=== PATIENT | male | born 1965 | race Caucasian/White ===

== ENCOUNTER 2018-09-23 23:13 | Emergency (ER) | payer SELFPAY ==
[~2018-09-23] VITALS: Ht 177.8 cm; Wt 79.8 kg
[2018-09-23 23:28] VITALS: BP 150/98
--- NOTE | 2018-09-24 00:19 | RAD ---
3 views right ankle HISTORY: Swelling and redness laterally tender to touch for 2 weeks, no injury AP lateral oblique views right ankle There is soft tissue swelling over the lateral malleolus. There is thickening of the periosteum of the lateral distal tibia and the posterior medial malleolus suggesting old injury. The tibiotalar relationship is normal. There is no lytic destructive changes. IMPRESSION: Soft tissue swelling over the lateral malleolus. No acute bony abnormality identified. Clinical correlation is suggested. Electronically signed by: Sumit Babb III, MD (09/24/2018 12:16 AM) [id number]
--- NOTE | 2018-09-24 00:32 | PHYS DOC ---
Past Medical History Past Medical History: No Pertinent History (NAKUL LIU APRN) Additional Past Surgical Histo: R KNEE SURGERY (NAKUL LIU APRN) Alcohol Use: Occasionally Drug Use: None (NAKUL LIU APRN) Adult General Chief Complaint Chief Complaint: SKIN RASH/ABSCESS HPI HPI Patient is a 52 year old male who presents to the ER with complaints of right lateral ankle pain for the last month. Pt states that he noticed the area is red and hot to touch now. He denies any known injury, states that he has been wearing a new pair of boots that have been rubbing his ankle and he attributes the boots the reason he developed the sore. PT denies any drainage from the site. He states that the discomfort is currently a 2/10 on the pain scale unless pressure is applied to the site, then the pain is a 10/10. (NAKUL LIU APRN) Review of Systems Review of Systems Constitutional: Denies fever or chills [] Musculoskeletal: See HPI Integument: See HPI Neurologic: Denies headache, focal weakness or sensory changes [] (NAKUL LIU APRN) Allergies Allergies Allergies Coded Allergies Type Severity Reaction Last Updated Verified No Known Drug Allergies 09/23/18 No (WIL FINCH MD) Physical Exam Physical Exam Constitutional: Well developed, well nourished, no acute distress, non-toxic appearance. [] HENT: Normocephalic, atraumatic, bilateral external ears normal, nose normal. [] Eyes: conjunctiva normal, no discharge. [] Neck: Normal range of motion, no tenderness, supple, no stridor. [] Cardiovascular: Heart rate regular rhythm, no murmur [] Lungs & Thorax: respirations even and unlabored Skin: Warm, dry; 3 cm circular area of erythema, warmth, and tenderness noted to right lateral ankle, no fluctuation or drainage, consistent with cellulitis Extremities: R lateral ankle tenderness, no crepitus, or deformity, full ROM, no cyanosis, 1+ edema Neurologic: Alert and oriented X 3, normal motor function, normal sensory function, no focal deficits noted. [] Psychologic: Affect normal, judgement normal, mood normal. [] (NAKUL LIU APRN) Current Patient Data Vital Signs Vital Signs Date Time Temp Pulse Resp B/P (MAP) Pulse Ox O2 Delivery O2 Flow Rate FiO2 09/23/18 23:28 97.8 105 16 150/98 (115) 100 Room Air 97.8 (WIL FINCH MD) EKG EKG [] (NAKUL LIU APRN) Radiology/Procedures Radiology/Procedures REASON: swelling and redness laterally, tender to touch, no injury, X 2 WEEKS PROCEDURE: ANKLE RIGHT 3V 3 views right ankle HISTORY: Swelling and redness laterally tender to touch for 2 weeks, no injury AP lateral oblique views right ankle There is soft tissue swelling over the lateral malleolus. There is thickening of the periosteum of the lateral distal tibia and the posterior medial malleolus suggesting old injury. The tibiotalar relationship is normal. There is no lytic destructive changes. IMPRESSION: Soft tissue swelling over the lateral malleolus. No acute bony abnormality identified. Clinical correlation is suggested. [] (NAKUL LIU APRN) Course & Med Decision Making Course & Med Decision Making Pertinent Labs and Imaging studies reviewed. (See chart for details) [] (NAKUL LIU APRN) Course & Med Decision Making Staff Physician Addendum: I was working in the ER during the course of this patient's visit. I was available for consultation as needed, but I was not directly involved in the care of this patient. (WIL FINCH MD) Dragon Disclaimer Dragon Disclaimer This electronic medical record was generated, in whole or in part, using a voice recognition dictation system. (NAKUL LUI APRN) Departure Departure Impression: Primary Impression: Cellulitis of right ankle Disposition: 01 HOME, SELF-CARE Condition: STABLE Referrals: NO PCP (PCP) Patient Instructions: Cellulitis, [id number] Additional Instructions: Fill prescription and use as directed. He may take Tylenol or ibuprofen as needed for pain. Recommend he stop wearing the boots that are causing this irritation. Follow-up with your primary care doctor if symptoms persist, return to the ER symptoms worsen. Scripts Clindamycin Hcl (CLINDAMYCIN HCL) 150 Mg Capsule 3 CAP PO TID for 7 Days, #63 CAP 0 Refills Prov: NAKUL LIU APRN 09/24/18 NAKUL LIU APRN Sep 24, 2018 00:32 WIL FINCH MD Sep 24, 2018 06:06
[2018-09-24] MEDS ORDERED: CLIN150C14 PO (00:40)
== END 2018-09-24 00:54 | disposition home or self-care (01) ==
LOC: ER 23:13
DX: L03.115 Cellulitis of right lower limb (principal)
CPT/HCPCS: 73610; 99283

== ENCOUNTER 2021-04-16 17:34 | Emergency (ER) | payer SELFPAY ==
[~2021-04-16] VITALS: Ht 177.8 cm; Wt 85.0 kg
[~2021-04-16 17:34] MED LIST: CLIN150C16 PO
[2021-04-16 18:29] VITALS: BP 159/69
[2021-04-16] MEDS ORDERED: CARB-171 EACH EAR (19:10)
[2021-04-16] MEDS ORDERED: OFLO5DRO7 RIGHT EAR (19:10)
--- NOTE | 2021-04-16 19:10 | PHYS DOC ---
Past Medical History Past Medical History: No Pertinent History Past Surgical History: No Surgical History Additional Past Surgical Histo: R KNEE SURGERY Smoking Status: Never Smoker Alcohol Use: Occasionally Drug Use: None General Adult EDM: Chief Complaint: EARACHE/EAR PAIN HPI: HPI: 55-year-old male who denies any significant past medical history, presents the ED with complaints of right ear pain that started yesterday after he was working on a car. Patient states some fluid leaked full working underneath a car and he believes the fluid got into his right ear. Denies associated fever, dizziness, hearing loss, lack of taste or smell, nausea, vomiting, diarrhea, fatigue malaise, sore throat or cough. Has not been vaccinated for Covid. Review of Systems: Review of Systems: Constitutional: Denies fever or chills. [] Eyes: Denies change in visual acuity. [] HENT: Denies nasal congestion or sore throat. [] Respiratory: Denies cough or shortness of breath. [] Cardiovascular: Denies chest pain or edema. [] GI: Denies nausea, vomiting, Integument: Denies rash or diaphoresis Neurologic: Denies headache, focal weakness or sensory changes. [] Psychiatric: Denies depression or anxiety. [] Heart Score: C/O Chest Pain: No Risk Factors: Risk Factors: DM, Current or recent (<one month) smoker, HTN, HLP, family history of CAD, obesity. Risk Scores: Score 0 - 3: 2.5% MACE over next 6 weeks - Discharge Home Score 4 - 6: 20.3% MACE over next 6 weeks - Admit for Clinical Observation Score 7 - 10: 72.7% MACE over next 6 weeks - Early Invasive Strategies Allergies: Allergies: Allergies Coded Allergies Type Severity Reaction Last Updated Verified No Known Drug Allergies 04/16/21 No Physical Exam: PE: Constitutional: Well developed, well nourished, no acute distress, non-toxic mirlande earance. HENT: Normocephalic, atraumatic, left ear exam wnl, right ear exam with cerumen (can see 50% TM) and erythema of external canal at 6 o'clock position, no tm erythema or effusion Eyes: EOMI, conjunctiva normal, no discharge. Neck: Normal range of motion, supple, Cardiovascular: S1/2 present, regular rhythm Lungs & Thorax: Speaking in full sentences, bilateral equal chest rise, no tachypnea or increased work of breathing Skin: Warm, dry, Extremities: No tenderness, no cyanosis, Neurologic: Alert and oriented X 3, normal motor function, normal sensory function, no focal deficits noted. [] Psychologic: Affect normal, judgement normal, mood normal. [] Current Patient Data: Vital Signs: Vital Signs Date Time Temp Pulse Resp B/P (MAP) Pulse Ox O2 Delivery O2 Flow Rate FiO2 04/16/21 18:29 98.5 68 17 159/69 97 Room Air 98.5 EKG: EKG: [] Radiology/Procedures: Radiology/Procedures: [] Course & Med Decision Making: Course & Med Decision Making Pertinent Labs and Imaging studies reviewed. (See chart for details) Concern for acute otitis externa, will treat with Floxin eardrops and Debrox for cerumen, patient has no cerumen impaction. Will discharge home with strict ED return precautions were given for dizziness, hearing loss, neurologic deficits or fever. Encouraged urgent outpatient follow-up with PMD and ENT for definitive management. Life-threatening processes were considered but are low suspicion at this time, given history, physical exam and ED workup. Pt was educated on all prescription medications and adverse effects. All patient's questions were answered and pt was stable at time of discharge. Life/limb-threatening differential includes but is not limited to, auricular hematoma or perichondritis, malignant otitis externa, otitis externa or media, otomycosis, bullous myringitis, mastoiditis, hearing loss or vestibular disorder, tympanic membrane rupture/perforation/barotrauma, herpes zoster oticus, contact dermatitis, cholesteatoma, meningitis/encephalitis, brain a bscess or venous/cavernous/cerebral sinus thrombosis. I have spoken with the patient and/or caregivers. I explained the patient's condition, diagnoses and treatment plan based on the information available to me at this time. I have answered the patient and/or caregiver's questions and addressed any concerns. The patient and/or caregivers have a good understanding of patient's diagnosis, condition and treatment plan as can be expected at this point. Vital signs have been stable. Patient's condition is stable and appropriate for discharge from the emergency department. Patient will pursue further outpatient evaluation with primary care physician or other designated or consulting physician as outlined in the discharge instructions. The patient and/or caregivers are agreeable to this plan of care and follow-up instructions have been explained in detail. The patient and/or caregivers have received these instructions in written form and have expressed an understanding of the discharge instructions. The patient and/or caregivers are aware that any significant change of condition or worsening of symptoms should prompt immediate return to this or the closest emergency department or call to 1. Joe Disclaimer: Joe Disclaimer: This electronic medical record was generated, in whole or in part, using a voice recognition dictation system. Departure Departure Impression: Primary Impression: Right otitis externa Additional Impression: Excessive cerumen in right ear canal Disposition: HOME / SELF CARE / HOMELESS Condition: STABLE Referrals: NO PCP (PCP) Follow-up with your primary care physician in 24 to 48 hours OR FOLLOW UP WITH FAMILY MEDICINE: [address] [facility], [facility] [address] [place] [address] Patient Instructions: Otalgia, Otitis Externa Additional Instructions: FOLLOW UP WITH ENT: FOR DEFINITIVE MANAGEMENT of ear pain Otolaryngology [address] [facility], [address] [place] [address] composition weatherboard applier [facility] [address] [place] [address] EMERGENCY DEPARTMENT GENERAL DISCHARGE INSTRUCTIONS Thank you for coming to [facility] Emergency Department (ED) today and trusting us with you care. We trust that you had a positive experience in our Emergency Department. If you wish to speak to the department management, you may call the Director at [phone]. YOUR FOLLOW UP INSTRUCTIONS ARE FOLLOWS: 1. Do you have a private Doctor? If you do not have a private doctor, please ask for a resource list of physicians or clinics that may be able to assist you with follow up care. 2. The Emergency Physicain has interpreted your x-rays. The X-Ray specialist will also review them. If there is a change in the findings, you will be notified in 48 hours when at all possible. 3. A lab test or culture has been done, your results will be reviewed and you will be notified if you need a change in treatment. ADDITIONAL INSTRUCTIONS AND INFORMATION: 1. Your care today has been supervised by a physician who is specially trained in emergency care. Many problems require more than one evaluation for a complete diagnosis and treatment. We recommend that you schedule your follow up appointment as recommended to ensure complete treatment of you illness or injury. If you are unable to obtain follow up care and continue to have a problem, or if your condition worsens, we recommend that you return to the ED. 2. We are not able to safely determine your condition over the phone nor are we able to give sound medical advice over the phone. For these safety reasons, if you call for medical advice we will ask you to come to the ED for further evaluation. 3. If you have any questions regarding these discharge instructions please call the ED at [phone]. SAFETY INFORMATION: In the interest of safety, wellness, and injury prevention; we encourage you to wear your sealbelt, if you smoke; quite smoking, and we encourage family to use a protective helmet for bicycling and other sporting events that present an increased risk for head injury. IF YOUR SYMPTOMS WORSEN OR NEW SYMPTOMS DEVELOP, OR YOU HAVE CONCERNS ABOUT YOUR CONDITION; OR IF YOUR CONDITION WORSENS WHILE YOU ARE WAITING FOR YOUR FOLLOW UP APPOINTMENT; EITHER CONTACT YOUR PRIMARY CARE DOCTOR, THE PHYSICIAN WHOSE NAME AND NUMBER YOU WERE GIVEN, OR RETURN TO THE ED IMMEDIATELY. Scripts Ofloxacin (OFLOXACIN) 5 Ml Drops 5 DROP RIGHT EAR BID for 7 Days, #5 ML 0 Refills Prov: MARI AMBROSE DO 04/16/21 Carbamide Peroxide (EAR WAX REMOVAL) 15 Ml Drops 5 DROP EACH EAR DAILY PRN for ear wax buildup for 7 Days, #1 BOTTLE 0 Refills Prov: MARI AMBROSE DO 04/16/21 MARI AMBROSE DO Apr 16, 2021 19:10
== END 2021-04-16 20:00 | disposition home or self-care (01) ==
LOC: ER 17:34
DX: H60.91 Unspecified otitis externa, right ear (principal); H61.21 Impacted cerumen, right ear
CPT/HCPCS: 99283